=== PATIENT | female | born 1995 | race Caucasian/White ===

== ENCOUNTER 2024-03-02 20:32 | Emergency (ER) | payer OTHER, SELFPAY ==
[2024-03-02 20:41] VITALS: BP 136/86; PULSE 90; TEMP 36.9; O2SAT 97; BMI 53.3
--- NOTE | 2024-03-02 20:50 | XR_ITS ---
[address] [address] Patient Name: CONSTANCE GOTTI MRN: [id number] date: 1995 Sex: F Assigned Patient Location: ER Current Patient Location: ER Accession/Order Number: [id number] Exam Date: 03/02/2024 21:25 Report Date: 03/02/2024 22:49 At the request of: CHELY JACOBS Procedure: XR chest 2V EXAMINATION: XR chest 2V, , 03/02/2024 9:25 PM EST INDICATION: cough, bilateral rib pain HISTORY: Ordering Provider Reason for Exam: cough, bilateral rib pain Technologist Note: Additional: COMPARISON: None. TECHNIQUE: Chest x-ray: Two views. FINDINGS: No pneumothorax, pleural effusion or focal airspace consolidation. Heart is normal in size. Bony thorax is unremarkable. XR/XR chest 2V IMPRESSION: No acute cardiopulmonary process. Electronically authenticated by: AUDREY MORENO Date: 03/02/2024 22:49
[2024-03-02 21:16] LABS: Influenza Virus A Antigen Negative; Influenza Virus B Antigen Negative; Internal Control Within Normal Limits; SARS-CoV-2 Ag NEGATIVE (NEGATIVE)
--- NOTE | 2024-03-02 23:06 | ED_ITS ---
HPI - URI/Sore Throat General Chief Complaint: Upper Respiratory Infection Stated Complaint: COUGH, SIDE/BACK PAIN, DIFF BREATHING Time Seen by Provider: 03/02/24 22:58 Source: patient Limitations: no limitations History of Present Illness HPI Narrative: 28-year-old female to the emergency department with chief complaint of fever, chills, cough, pain in her chest when coughing. Symptoms been ongoing for several days. They are not improving. She denies any shortness of breath. No nausea vomiting. No abdominal pain. She denies Related Data Previous Rx's ?Medication ?Instructions ?Recorded azithromycin 250 mg tablet See Rx Instructions PO .COMPLEX #6 03/02/24 (Zithromax Z-Tomasz) tabs wkiihhkssleeihp-vcaowmxvjsajtxi-DR 5 ml PO Q4H PRN cold symptoms #118 03/02/24 2 mg-30 mg-10 mg/5 mL oral syrup mL (Bromfed DM) Allergies Allergy/AdvReac Type Severity Reaction Status Date / Time ciprofloxacin (From Cipro) Allergy Intermediate Hives Verified 03/02/24 20:49 naproxen Allergy Intermediate Palpitation Verified 03/02/24 20:49 s sertraline (From Zoloft) Allergy Intermediate Shakiness Verified 03/02/24 20:49 sulfamethoxazole (From Allergy Intermediate Hives Verified 03/02/24 20:49 Bactrim) trimethoprim (From Bactrim) Allergy Intermediate Hives Verified 03/02/24 20:49 Review of Systems ROS Status of ROS 10 or more systems reviewed and unremark able except as noted in history and below PFSH PFSH Social History Little interest or pleasure in doing things: not at all Feeling down, depressed, or hopeless: not at all Exam Narrative Exam Narrative: VITALS: I have reviewed the triage vital signs. GENERAL: Well developed, well appearing adult in no acute distress. NEURO: Alert and oriented. Moves all extremities. Face is symmetric and expressi ve. EYES: PERRL. No scleral icterus or conjunctival injection. No discharge. HENT: Normocephalic, atraumatic. Hearing is grossly intact. Nares grossly patent and without discharge. Mucous membranes moist. NECK: No JVD. Patient moves neck without restriction. CARDIO: Rhythm regular. Normal rate. No murmur, rub, or gallop. Pulses equal bilaterally in the upper and lower extremity. No lower extremity edema. PULM: Rhonchi that clear with coughing. No conversational dyspnea. No splinting, stridor, or accessory muscle use. EXTREMITIES: Symmetric muscle bulk. No joint swelling. No clubbing, cyanosis, or deformity. SKIN: Warm and dry. Normal turgor. No rash or lesions appreciated. PSYCH: Mood, affect, and interaction is appropriate to the setting. Constitutional Vital Signs, click to edit/add: Last Vital Signs Temp 98.5 F 03/02/24 20:41 Pulse 90 03/02/24 20:41 Resp 16 03/02/24 20:41 BP 136/86 03/02/24 20:41 Pulse Ox 97 03/02/24 20:41 Course Vital Signs Vital signs: Vital Signs Temperature 98.5 F 03/02/24 20:41 Pulse Rate 90 03/02/24 20:41 Respiratory Rate 16 03/02/24 20:41 Blood Pressure 136/86 03/02/24 20:41 Pulse Oximetry 97 03/02/24 20:41 Temperature 98.5 F 03/02/24 20:41 Pulse Rate 90 03/02/24 20:41 Respiratory Rate 16 03/02/24 20:41 Blood Pressure 136/86 03/02/24 20:41 Pulse Oximetry 97 03/02/24 20:41 MDM - URI/Sore Throat MDM Narrative Medical decision making narrative: 28-year-old female to the emergency department with chief complaint of cough. Vital stable, the patient is afebrile. Rhonchi on exam, otherwise unremarkable. Her vitals are stable. She denies , declines testing. High predominance of mycoplasma in the community at this time. Her clinical course meets this picture of atypical pneumonia. Chest x-ray is negative. Swabs are negative. Azithromycin, Bromfed. Follow-up with PCP. Return precautions were discussed. All questions were answered. The patient was discharged home. Lab Data Attestation: I reviewed the patient's lab results. Labs: Lab Results 03/02/24 Range/Units 20:46 Influenza Type A Ag Negative Influenza Type B Ag Negative SARS-CoV-2 Ag (CV2AG) Negative (NEGATIVE) Imaging Data Chest x-ray: Attestation: I have reviewed the pertinent imaging results. Radiologist's impression: ITS Impressions Chest X-Ray 03/02/24 20:50 IMPRESSION: No acute cardiopulmonary process. Electronically authenticated by: AUDREY AHNATHALIE Date: 03/02/2024 22:49 Discharge Plan Discharge Chief Complaint: Upper Respiratory Infection Clinical Impression: Cough Patient Disposition: Home, Self-Care Time of Disposition Decision: 23:04 Condition: Good Mode of Transportation: Private Vehicle Prescriptions / Home Meds: New gpojsbdsbkiqtfq-fcathercu-NB [Bromfed DM] 2-30-10 mg/5 mL syrup 5 ml PO Q4H PRN (Reason: cold symptoms) Qty: 118 0RF azithromycin [Zithromax Z-Tomasz] 250 mg tablet See Rx Instructions .ROUTE .COMPLEX Qty: 6 0RF Rx Instructions: For 250 mg dose pack: take 500 mg today (day 1), then 250 mg for 4 days (days 2-5) Print Language: Maldivian Instructions: Acute Cough (ED) Additional Instructions: Call the office of your primary care doctor to arrange for follow-up within the above-stated timeframe. Your ED visit was focused on your acute issue and does not replace primary care. You should review your labs, imaging, and diagnoses from this ED visit with your primary care physician. There may be non-emergent/ incidental findings that need further evaluation. You should review your vital signs including blood pressure with your PCP. If you were prescribed medications you should discuss possible side-effects and drug interactions with your pharmacist. Call 911 or go to the nearest Emergency Department if you develop any new or worsening symptoms. Seek immediate medical attention if you develop: worsening shortness of breath, difficulty breathing, chest pain, nausea, vomiting, weakness, numbness, tingling, excessive sweating, loss of motion in your arms or legs, or any new or worsening symptoms. Referrals: ROJAS JAY [Primary Care Provider] - 1 week ()
== END 2024-03-02 23:11 | disposition home or self-care (01) ==
PROVIDERS: Emergency Provider Student in an Organized Health Care Education/Training Program; PCP Family Medicine
DX: R05.9 Cough, unspecified (principal); Z20.822 Contact with and (suspected) exposure to COVID-19
CPT/HCPCS: 71046; 87804; 87811; 99284